=== PATIENT | male | born 1980 | race Caucasian/White ===

== ENCOUNTER 2019-11-09 05:08 | Emergency (ER) | payer OTHER ==
[~2019-11-09] VITALS: Ht 177.8 cm; Wt 72.7 kg
[2019-11-09 05:59] LABS: BASO # 0.1 10^3/uL (0.0-0.2); BASO % 0.6 % (0.0-1.0); EOS # 0.1 10^3/uL (0.0-0.5); EOS % 0.7 % (0.0-3.0); HEMATOCRIT 49.1 % (42.0-52.0); HEMOGLOBIN 15.9 g/dl (13.5-17.5); LYMPH % 13.2 % (24.0-44.0); MEAN CORPUSCULAR HEMOGLOBIN 29.9 pg (27.0-33.0); MEAN CORPUSCULAR HGB CONC 32.4 g/dl (32.0-36.5); MEAN CORPUSCULAR VOLUME 92.5 fl (80.0-96.0); MONO # 1.5 10^3/uL (0.0-0.8); MONO % 9.9 % (0.0-5.0); NEUTROPHILS # 11.4 10^3/uL (1.5-8.5); NEUTROPHILS % 74.3 % (36.0-66.0); PLATELET COUNT, AUTOMATED 312 10^3/uL (150-450); RED BLOOD COUNT 5.31 10^6/uL (4.30-6.10); WHITE BLOOD COUNT 15.3 10^3/uL (4.0-10.0)
[2019-11-09] MEDS ORDERED: ONDANSETRON 4MG/2ML VIAL (J2405) IV ONE (06:00)
[2019-11-09] MEDS: MORPHINE 4 MG/ML 1ML VIAL/SYRINGE (J2270) IV PRN ×2 (06:13→08:29)
[2019-11-09] MEDS: GASTROGRAFIN SOLUTION 30ML PO SCH ×2 (06:21→06:51)
[2019-11-09 06:27] LABS: ALBUMIN 4.4 GM/DL (3.2-5.2); ALT/SGPT 38 U/L (12-78); BILIRUBIN,DIRECT 0.1 MG/DL (0.0-0.2); BLOOD UREA NITROGEN 8 MG/DL (7-18); CALCIUM LEVEL 9.6 MG/DL (8.5-10.1); CARBON DIOXIDE LEVEL 28 MEQ/L (21-32); CHLORIDE LEVEL 102 MEQ/L (98-107); GLOMERULAR FILTRATION RATE > 60.0 (>60); GLUCOSE, FASTING 102 MG/DL (70-100); LIPASE 108 U/L (73-393); POTASSIUM SERUM 4.7 MEQ/L (3.5-5.1); SODIUM LEVEL 138 MEQ/L (136-145); TOTAL PROTEIN 7.8 GM/DL (6.4-8.2)
[2019-11-09] MEDS ORDERED: ISOVUE-370 76% 100ML VIAL (Q9967) As Ordered ONE (07:49)
--- NOTE | 2019-11-09 08:27 | REP ---
CT abdomen and pelvis with IV and oral contrast: History: Generalized abdomen pain. The patient relates a history of hernia surgery. CT contrast dose: 100 mL of intravenous Isovue 370. CT findings: Digital preliminary child and family counselor radiograph demonstrates mild gaseous distension of the colon, question ileus. The lung bases are clear on axial CT images. There is mild diffuse fatty infiltration of the liver. No focal liver lesion is seen. No abnormality is noted in the gallbladder or the pancreas. Normal adrenal glands are seen bilaterally. The kidneys enhance symmetrically and are morphologically intact. No retroperitoneal mass or adenopathy is seen. There is a suprapubic rectus sheath hematoma in the left rectus abdominis muscle with subjacent edema occupying the retropubic space. There are dystrophic calcifications in the prostate. No pelvic mass is seen. No evidence of free air or intraperitoneal fluid collection. Impression: Left suprapubic rectus sheath hematoma measuring 3.3 x 5.8 x 7.7 cm. There is edema and/or mild hemorrhage in the retropubic space. Mild ileus. Fatty infiltration of the liver. Electronically Signed by Massimo Motley MD 11/09/2019 10:34 A
[2019-11-09 10:26] VITALS: BP 148/79
--- NOTE | 2019-11-09 13:13 | ED PDOC ---
Post-Departure Follow-Up dr hidalgo faxed fomral report of ct abd/p for fu Kandis Zavaleta MD Nov 09, 2019 13:13
== END 2019-11-09 10:28 | disposition home or self-care (01) ==
LOC: M ED 05:08
DX: M79.81 Nontraumatic hematoma of soft tissue (principal); F17.200 Nicotine dependence, unspecified, uncomplicated; R05 Cough; K76.0 Fatty (change of) liver, not elsewhere classified
CPT/HCPCS: 74177; 80048; 80076; 81001; 83690; 85025; 96374; 96375; 96376; 99284; J2270; J2405; Q9963; Q9967